=== PATIENT | male | born 1945 | race Caucasian/White ===

== ENCOUNTER 2017-07-27 05:32 | Day surgery (SDC) | payer MEDICARE, BC ==
[2017-07-26 10:53] LABS: HEMATOCRIT 41.4 % (42.0-54.0); HEMOGLOBIN 13.9 g/dL (13.5-17.5); MCH 30.1 pg (26.0-34.0); MCHC 33.6 g/dL (31.0-37.0); MCV 89.6 fL (80.0-100.0); MEAN PLATELET VOLUME 10.6 fL (7.4-10.4); RBC 4.62 10x6/uL (4.20-6.10); RDW 13.4 % (11.5-14.5); WBC 5.5 10x3/uL (4.8-10.8)
[2017-07-26 11:29] LABS: CALC OSMOLALITY 287 mosm/kg (275-300); CALCIUM 9.2 mg/dL (8.5-10.1); CHLORIDE - SERUM 106 mmol/L (98-107); CREATININE - SERUM 0.9 mg/dL (0.6-1.3); GLUCOSE 141 mg/dL (74-106); POTASSIUM - SERUM 4.1 mmol/L (3.5-5.1); SODIUM 143 mmol/L (136-145); UREA NITROGEN 14 mg/dL (7-18); eGFR NON AFRICAN AMERICAN 89 mL/min (90-120)
[2017-07-27] MEDS ORDERED: ASPIRIN325 MG PO (06:42)
[2017-07-27] MEDS ORDERED: COZAAR50 MG PO (06:43)
[2017-07-27] MEDS ORDERED: GLUCOPHAGE1000 MG PO (06:43)
[2017-07-27] MEDS ORDERED: CRESTOR20 MG PO (06:43)
[2017-07-27] MEDS ORDERED: FLOMAX0.4 MG PO (06:44)
[2017-07-27] MEDS ORDERED: ZANTAC150 MG PO (06:44)
[2017-07-27] MEDS ORDERED: LANTUS INSULIN10 ML SC (06:45)
[2017-07-27 06:52] VITALS: BP 157/77; BMI 28.8
--- NOTE | 2017-07-27 09:44 | NUR ---
0916 DISCHARGE INSTRUCTIONS COMPLETE. FOLLOW UP APPOINTMENT MADE. NO PRESCRIPTIONS GIVEN. PT ESCORTED OUT BY VOLUNTEER.
--- NOTE | 2017-07-27 11:45 | OP ---
PATIENT NAME: AHMET KYLE MEDICAL RECORD: [id number] :47 LOCATION:[facility] ADMISSION DATE: SURGEON: MARYA ORELLANA MD DATE OF OPERATION: 07/27/2017 SURGEON: Marya Orellana MD ANESTHESIA: MAC. 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 PROCEDURE: Transrectal ultrasound and prostate biopsy. FINDINGS: 38 gram prostate, small hypoechoic areas within the prostate. SPECIMENS: Prostate biopsy cores. ESTIMATED BLOOD LOSS: None. CLINICAL HISTORY: This is a 71-year-old male, who has an elevated PSA of 7.0. He also has a history of Agent Madison exposure in [place]. There is no family history of prostate cancer. He comes now to have a transrectal ultrasound and prostate biopsy. On rectal examination, he had a moderate sized prostate, which was smooth and no nodules were palpable. HE IS ALLERGIC TO LAMISIL AND LIPITOR. 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 He also has been taking oral Bactrim at home and last night, he had an enema to clean his rectum out. DESCRIPTION OF PROCEDURE: The patient was given IV sedation. He was then placed into dorsal lithotomy position and prepped and draped. The transrectal ultrasound probe was placed and we measured the prostate size. The prostate volume was estimated at 38 grams. Sextant biopsies were obtained. These are left and right with the apex, mid, and base sectors on each side. At least 3 good cores were obtained from each sextant. Once this was done, the patient was brought back to the preoperative holding area. I will go over the results with him next week. TRANSINT:[id number] Voice Confirmation ID: [id number] DOCUMENT ID: [id number] MARYA ORELLANA MD at 1145 CC: [id number] DICTATION DATE: 07/27/17909 CUTTING ROOM SUPERVISOR: 07/27/17 1117 [facility] 07/27/17 [place] [id number]
== END 2017-07-27 09:46 | disposition home or self-care (01) ==
LOC: D.PAN 05:32 → D.OPS 08:00 → D.PAN 09:46
PROVIDERS: Anesthesiology
DX: R97.20 Elevated prostate specific antigen [PSA] (principal); I10 Essential (primary) hypertension; K21.9 Gastro-esophageal reflux disease without esophagitis; E11.9 Type 2 diabetes mellitus without complications; I25.10 Atherosclerotic heart disease of native coronary artery without angina pectoris; E78.5 Hyperlipidemia, unspecified; Z01.812 Encounter for preprocedural laboratory examination

== ENCOUNTER → 2019-02-14 10:10 | Outpatient (CLI) | payer MEDICARE, BC | END | disposition home or self-care (01) | LOC: D.HCCARDIO 10:10 | DX: I10 Essential (primary) hypertension (principal) ==

== ENCOUNTER → 2020-02-19 11:04 | Outpatient (CLI) | payer MEDICARE, BC ==
[~2020-02-19 11:04] MED LIST: ASPIRIN325 MG PO; COZAAR50 MG PO; CRESTOR20 MG PO; FLOMAX0.4 MG PO; GLUCOPHAGE1000 MG PO; LANTUS INSULIN10 ML SC; ZANTAC150 MG PO
--- NOTE | 2020-02-21 01:43 | EC ---
PATIENT:AHMET KYLE DATE OF SERVICE: 02/19/20 SEX: M MEDICAL RECORD: [id number] DATE OF : 47 LOCATION:D[facility] AGE OF PATIENT: 74 ADMISSION DATE: 02/19/20 REFERRING PHYSICIAN: INTERPRETING PHYSICIAN: CIARAN SMITH MD ECHOCARDIOGRAM REPORT ECHO CHARGES 4 ECHO COMPLETE Date: 02/19/20 CLINICAL DIAGNOSIS: HX OF HTN/CAD ECHOCARDIOGRAPHIC MEASUREMENTS (adult normal given) AC root (d.<3.7cm) 3.2 cm LV Septum d (<1.2 cm> 1.4 cm Valve Excursion 2.1 cm LV Septum (systole) 1.8 cm Left Atria (s.<4.0cm> 4.1 cm LVPW d(<1.2cm) 1.4 cm RV (d.<2.3cm) 3.2 cm LVPW (sytole) 2.0 cm LV diastole(<5.6CM) 5.4 cm MV E-F(>70mm/sec) cm LV systole 3.7 cm LVOT Diameter 1.8 cm MV exc.(>10mm) 1.4 cm Est.ejection fraction (50-75%) % DOPPLER: LVIT cm/sec A 117.0cm/sec E 126.0 cm/sec LA cm/sec RVSP 19 mmHg LVOT 110 cm/sec AOP1/2T m/s Asc. 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 Light TAPE# PACS Pericardial Effusion N DATE OF SERVICE: Adequate 2D, color flow imaging, spectral Doppler, and M-Mode LVH is present. LV internal dimension is normal. Wall motion is normal. EF is greater than or equal to 55%. Aortic valve is tricuspid. No evidence of stenosis by Doppler interrogation. Left atrium was upper limits of normal to mildly dilated at 4.1 cm. Mitral valve shows no prolapse. Trace MR. Right side is grossly normal. Trace TR. ECHOCARDIOGRAM REPORT [id number] AHMET KYLE TRANSINT:[id number] Voice Confirmation ID: [id number] DOCUMENT ID: [id number] CIARAN SMITH MD at 0143 CC: [id number] DICTATION DATE: 02/20/20817 INJECTION MOLDING MACHINE TENDER: 02/20/20 1301 [facility]P CLI 02/19/20 [place] [id number] [place] [id number]
== END | disposition home or self-care (01) ==
LOC: D.HCCECHO 10:30
PROVIDERS: ATTEND Internal Medicine Interventional Cardiology
DX: I10 Essential (primary) hypertension (principal)